=== PATIENT | female | born 2005 | race Caucasian/White ===

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

== ENCOUNTER 2023-06-06 20:02 | Emergency (ER) | payer MEDICAID ==
[~2023-06-06] VITALS: Ht 162.6 cm; Wt 127.0 kg
[2023-06-06 20:09] VITALS: BP 132/75; PULSE 84; RESP 18; TEMP 98.6; O2SAT 98
== END 2023-06-07 00:10 | disposition home or self-care (01) ==
LOC: ER 20:03
DX: M25.571 Pain in right ankle and joints of right foot (principal); F41.9 Anxiety disorder, unspecified; J45.909 Unspecified asthma, uncomplicated; Z88.6 Allergy status to analgesic agent; Z79.899 Other long term (current) drug therapy; X50.0XXA Overexertion from strenuous movement or load, initial encounter; Y93.89 Activity, other specified; Y92.89 Other specified places as the place of occurrence of the external cause; Y99.8 Other external cause status
CPT/HCPCS: 73610; 99284

== ENCOUNTER 2023-10-15 11:00 | Emergency (ER) | payer MEDICAID ==
[~2023-10-15] VITALS: Ht 162.6 cm; Wt 111.4 kg
[2023-10-15 11:06] VITALS: BP 179/154; PULSE 80; RESP 18; TEMP 97.8; O2SAT 98
[2023-10-15] MEDS ORDERED: NAPR-56 PO (11:47)
== END 2023-10-15 12:57 | disposition home or self-care (01) ==
LOC: ER 11:01
DX: S93.602A Unspecified sprain of left foot, initial encounter (principal); J45.909 Unspecified asthma, uncomplicated; F41.9 Anxiety disorder, unspecified; X58.XXXA Exposure to other specified factors, initial encounter; Y93.89 Activity, other specified; Y92.89 Other specified places as the place of occurrence of the external cause; Y99.8 Other external cause status
CPT/HCPCS: 73630; 99283